=== PATIENT | male | born 1960 | race African-American/Black ===

== ENCOUNTER → 2021-03-28 | Outpatient (CLI) | payer OTHER | END | disposition home or self-care (01) | LOC: MRI 07:19 | PROVIDERS: ATTEND Family Medicine Adult Medicine | DX: M48.061 Spinal stenosis, lumbar region without neurogenic claudication (principal); M51.36 Other intervertebral disc degeneration, lumbar region; M48.8X9 Other specified spondylopathies, site unspecified | CPT/HCPCS: 72148 ==